=== PATIENT | male | born 1955 | race African-American/Black ===

== ENCOUNTER 2020-09-13 02:52 | Inpatient (IN) | payer MEDICARE, OTHER ==
[~2020-09-13] VITALS: Ht 182.9 cm; Wt 65.8 kg
--- NOTE | 2020-09-13 02:56 | NUR ---
pt bibpa c/o gravely disabled and DTO being aggressive to staff at facility. Pt aaox2 breathing evenly and unlabored. pt attached to monitor and pox. Pt here for med clearance for GPS. SKin is warm and dry. Pt given blanket and call light within reach
--- NOTE | 2020-09-13 03:12 | NUR ---
lab at bedside
--- NOTE | 2020-09-13 03:19 | NUR ---
urine sent to lab
[2020-09-13 03:40] LABS: BILIRUBIN,URINE Negative (NEGATIVE); COLOR,URINE YELLOW (YELLOW); LEUKOCYTE ESTERASE ,URINE Small (NEGATIVE); NITRITE, URINE Negative (NEGATIVE); PROTEIN,URINE 30 mg/dl (NEGATIVE); UGLUCOSE Negative (NEGATIVE); UROBILINOGEN,URINE 0.2 EU/dL (0.2)
[2020-09-13 04:01] LABS: WBC,URINE 81-100 /HPF (0-3)
[2020-09-13 04:02] LABS: BACTERIA,URINE None seen /HPF (None Seen); SQUAMOUS EPITHELIAL CELL,UR Rare /HPF (None Seen)
[2020-09-13 04:10] LABS: BASOPHILS # (AUTO) 0.1 K/uL (0.0-0.2); BASOPHILS % (AUTO) 1.3 % (0.0-2.0); EOSINOPHILS % (AUTO) 5.8 % (0.0-6.0); HEMATOCRIT 29 % (39-51); HEMOGLOBIN 9.7 g/dL (13.5-17.5); LYMPHOCYTES # (AUTO) 1.8 K/uL (0.8-4.8); LYMPHOCYTES % (AUTO) 42.4 % (20.0-44.0); MEAN CORPUSCULAR HGB CONC 33 g/dl (31.0-36.0); MEAN CORPUSCULAR VOLUME 102 fL (80-96); MONOCYTES # (AUTO) 0.5 K/uL (0.1-1.30); MONOCYTES % (AUTO) 12.2 % (2.0-12.0); NEUTROPHILS # (AUTO) 1.6 K/uL (1.8-8.9); NEUTROPHILS % (AUTO) 38.3 % (43.0-81.0); PLATELET COUNT (AUTO) 418 K/uL (150-450); RED BLOOD CELL COUNT(AUTO) 2.89 MIL/uL (4.5-6.0); WHITE BLOOD COUNT (AUTO) 4.2 K/uL (4.3-11.0)
[2020-09-13 04:27] LABS: ALANINE AMINOTRANSFERASE 15 U/L (12-78); ALCOHOL, BLOOD < 3 mg/dL (0-0); ALKALINE PHOSPHATASE 157 U/L (46-116); ASPARTATE AMINOTRANSFERASE 19 U/L (15-37); BILIRUBIN,DIRECT 0.1 mg/dL (0.0-0.2); BILIRUBIN,TOTAL 0.1 mg/dL (0.2-1.0); CARBON DIOXIDE 18 mmol/L (21-32); CHLORIDE 110 mmol/L (98-107); CREATININE 1.6 mg/dL (0.6-1.3); GLUCOSE 108 mg/dL (74-106); POTASSIUM 4.5 mmol/L (3.5-5.1); SODIUM SERUM 138 mmol/L (136-145); TOTAL PROTEIN, SERUM 6.9 g/dL (6.4-8.2); UREA NITROGEN, BLOOD 20 mg/dL (7-18)
[2020-09-13 04:30] LABS: ACETAMINOPHEN 0 ug/ml (10-30)
[2020-09-13] MEDS: CEPHALEXIN MONOHYDRATE 500 MG CAPSULE PO SCH ×2 (05:00→16:36)
[2020-09-13] MEDS ORDERED: CEPHALEXIN MONOHYDRATE 500 MG CAPSULE PO ONE (05:03)
--- NOTE | 2020-09-13 05:11 | NUR ---
gave report to MENDY Maguire for kenia
[2020-09-13] MEDS ORDERED: ZOLPIDEM TARTRATE 5 MG TABLET PO PRN (06:00)
[2020-09-13] MEDS ORDERED: ACETAMINOPHEN 325 MG TABLET PO PRN (06:00)
[2020-09-13] MEDS ORDERED: LORAZEPAM 0.5 MG TABLET PO PRN (06:00)
[2020-09-13] MEDS ORDERED: MAGNESIUM HYDROXIDE 30 ML UDC PO PRN (06:00)
[2020-09-13] MEDS ORDERED: MAG HYDROX/AL HYDROX/SIMETH 30 ML UDC PO PRN (06:00)
[2020-09-13] MEDS ORDERED: BLOOD SUGAR DIAGNOSTIC 1 EACH STRIP IN ONE (06:00)
--- NOTE | 2020-09-13 06:17 | NUR ---
ADMISSION NOTES: ADMITTED THIS 64Y/O MALE PATIENT ADMIT FROM [facility] ER/ INTIALLY FROM [facility] , ADMITTED TO GPS ON 5150 HOLD, PER HOLD DTO GRAVELY DISABLE,PER HOLD PT. VERBALLY AGGRESSIVE, COMBATIVE BEHAVIOR , TRYING TO HIT STAFF ,UPON FACE TO FACE ASSESSMENT PATIENT IS A&O X , 2,3 ANXIOUS ,DISHELVED ,EASILY GETS AGITATED, DISORGNIZED, UNCOOPERTIVE, NON REDIRDTABLE ,NONCOMPLIANT WITH CARE ,POOR HYGINE REFUSED TO TAKE SHOWER DENIES SI /HI AT THIS TIME, PT. IS POOR HISTORIAN, POOR INSIGHT ,POOR JUDGEMENT , PT. REFUSED TO SIGNS ADMISSION CONSENT PAPERS , DUE TO MENTAL STATUS/ ANXIOUS , PT. REFUSED INTIALLY BLOOD SUGAR CHECK, ENCOURAGED , PT. STRONGLY REFUSED , BOTH MD AWARE AND NOTIFIED OF THE ADMISSION, BELONGINGS CONTRABAND WERE DONE , NURSING ASSESSMENT DONE ,PT. RIGHTS DISCUSS BY BROADCAST ENGINEER , PROVIDE THE PT. WITH HANDBOOK, AND MEDICATIONS GUIDE, ENVIRONMENTAL SAFETY CHECK DONE, ENCOURAGED PT. VERBALIZED ANY FEELING CONCERN TO STAFF, ORIENT TO UNIT POLICY, NO ACUTE DISTRESS NOTED,VITAL SIGNS WNL ,DENIES ANY PAIN AT THIS TIME,WILL CONTINUE TO MONITOR FOR Q15 SAFETY AND BEHAVIOR.
[2020-09-13] MEDS ORDERED: AMLO-213 PO (06:56)
[2020-09-13] MEDS ORDERED: QUET300T2 PO (06:56)
[2020-09-13] MEDS ORDERED: METO25TA20 PO (06:56)
[2020-09-13] MEDS ORDERED: APIX5TAB PO (06:56)
[2020-09-13] MEDS ORDERED: LATA2.5D15 EACHEYE (06:56)
[2020-09-13] MEDS ORDERED: INSU100I26 SQ (06:56)
[2020-09-13] MEDS ORDERED: GABA300C PO (06:56)
[2020-09-13] MEDS ORDERED: [UNRECOGNIZED DRUG - CODE] (06:56)
[2020-09-13] MEDS ORDERED: FAMO20TA8 PO (06:56)
[2020-09-13] MEDS ORDERED: AMYL1CAP58 PO (06:56)
[2020-09-13] MEDS ORDERED: MULT-754 PO (07:01)
[2020-09-13 07:03] VITALS: BP 115/68
[2020-09-13 08:00] VITALS: BP 123/71
[2020-09-13] MEDS ORDERED: DEXTROSE 50%-WATER 50 ML DISP.SYRIN IV PRN (08:30)
--- NOTE | 2020-09-13 09:03 | NUR ---
Received call from Dr. Marino and said he is his pt. and he will call Ezekiel Shields. Dr. Cole gave an orders and reconciled the meds.
[2020-09-13] MEDS: BLOOD SUGAR DIAGNOSTIC 1 EACH STRIP IN SCH ×3 (11:22→21:21)
[2020-09-13] MEDS: APIXABAN 5 MG TABLET PO SCH ×2 (11:23→21:14)
[2020-09-13] MEDS: LIPASE/PROTEASE/AMYLASE 1 EACH CAPSULE.DR PO SCH ×2 (12:06→17:38)
[2020-09-13] MEDS: GABAPENTIN 300 MG CAPSULE PO SCH ×2 (12:07→16:37)
--- NOTE | 2020-09-13 13:51 | NUR ---
Admitting Notes: Admitted a 64 years old of 5150 for DTO and GD. Pt. was aggressive, not being able to be directed and increasing bizarre behavior and aggressive towards others. Upon face to face assessment pt. is alert/oriented x3, cooperative on the admission process. Pt. denies beling suicidal and homicidal. Pt. doesn't want to notify the immediate social contact worker. Dr. Marino called reconciled meds and gave orders. Dr. Ch came and see pt. Will continue to monitor for safety.
[2020-09-13 16:00] VITALS: BP 111/71
[2020-09-13] MEDS: QUETIAPINE FUMARATE 100 MG TABLET PO SCH ×2 (16:39→21:13)
[2020-09-13] MEDS: METOPROLOL TARTRATE 25 MG TABLET PO SCH (16:40)
[2020-09-13] MEDS: HYDROCODONE/APAP 5/325MG TABLET PO PRN (16:41)
[2020-09-13] MEDS ORDERED: Medication Not On Formulary EA (Quetiapine Fumarate (Seroquel) 300 MG) PO SCH (17:00)
[2020-09-13] MEDS: INSULIN REGULAR, HUMAN 100 UNIT/ML 3 ML VIAL SQ PRN (17:30)
[2020-09-13 20:59] VITALS: BP 102/62
[2020-09-13] MEDS: LATANOPROST EYE DROP 0.005% 2.5 ML BOTTLE EACHEYE SCH (21:16)
[2020-09-13] MEDS: INSULIN GLARGINE, 100 UNIT/ML CARTRIDGE SQ SCH (21:21)
--- NOTE | 2020-09-13 21:26 | NUR ---
PATIENT REFUSED THE LANTUS, ADVISED THE PATIENT THE BENEFITS AND IMPORTANCE OF THE MED.
[2020-09-14 08:00] VITALS: BP 115/69
--- NOTE | 2020-09-14 08:03 | NUR ---
GPS/RN PT REFUSED INSULIN COVERAGE AND REFUSED LABS DRAWN PER ADMINISTRATIVE SUPPORT ASSOCIATE.
[2020-09-14] MEDS: BLOOD SUGAR DIAGNOSTIC 1 EACH STRIP IN SCH ×4 (08:54→22:42)
[2020-09-14] MEDS: HYDROCODONE/APAP 5/325MG TABLET PO PRN ×2 (09:25→23:03)
[2020-09-14] MEDS: AMLODIPINE BESYLATE 10 MG TABLET PO SCH (09:25)
[2020-09-14] MEDS: FAMOTIDINE (20 MG) 20 MG TABLET PO SCH (09:26)
[2020-09-14] MEDS: CEPHALEXIN MONOHYDRATE 500 MG CAPSULE PO SCH ×2 (09:26→17:22)
[2020-09-14] MEDS: LIPASE/PROTEASE/AMYLASE 1 EACH CAPSULE.DR PO SCH ×3 (09:26→17:22)
[2020-09-14] MEDS: MULTIVITAMINS,THERAGRAN 1 UDTAB TABLET PO SCH (09:26)
[2020-09-14] MEDS: GABAPENTIN 300 MG CAPSULE PO SCH ×3 (09:26→17:22)
[2020-09-14] MEDS: SERTRALINE HCL 25 MG TABLET PO SCH (09:26)
[2020-09-14] MEDS: QUETIAPINE FUMARATE 100 MG TABLET PO SCH ×3 (09:28→22:24)
[2020-09-14] MEDS: METOPROLOL TARTRATE 25 MG TABLET PO SCH ×2 (09:28→17:22)
[2020-09-14] MEDS: APIXABAN 5 MG TABLET PO SCH ×2 (09:33→17:25)
--- NOTE | 2020-09-14 12:00 | NUR ---
GPS/RN PT REFUSED ACCUCHECK OFFERED X3
[2020-09-14 16:00] VITALS: BP 150/70
--- NOTE | 2020-09-14 17:12 | NUR ---
GPS/RN ACCUCHECK 271. PT REFUSED INSULIN COVERAGE OFFERED X3
[2020-09-14 20:19] VITALS: BP 116/66
[2020-09-14] MEDS: INSULIN GLARGINE, 100 UNIT/ML CARTRIDGE SQ SCH (22:00)
[2020-09-14] MEDS: LATANOPROST EYE DROP 0.005% 2.5 ML BOTTLE EACHEYE SCH (22:23)
[2020-09-14] MEDS: INSULIN REGULAR, HUMAN 100 UNIT/ML 3 ML VIAL SQ PRN (22:41)
--- NOTE | 2020-09-14 22:44 | NUR ---
GPS RN NOTES: BS 267. 6U REGULAR INSULIN ADMINISTERED PER SLIDING SCALE. PATIENT REFUSED LANTUS 8U ORDERED.
--- NOTE | 2020-09-14 23:05 | NUR ---
GPS RN NOTES: NORCO 5/325MG/1TAB GIVEN PO AT 2303 FOR GENERALIZED BODY PAIN. WILL CONTINUE TO MONITOR.
--- NOTE | 2020-09-14 23:05 | NUR ---
GPS RN NOTES: WEEKLY SKIN ASSESSMENT DONE, PICTURES TAKEN OF FOOT ULCERS AND PLACED IN PATIENT CHART. WOUND DRESSING DONE.
--- NOTE | 2020-09-15 01:13 | NUR ---
GPS RN NOTES: PATIENT REFUSED LABS
--- NOTE | 2020-09-15 06:32 | NUR ---
GPS RN NOTES: PATIENT IS CURRENTLY SLEEPING COMFORTABLY IN BED. PATIENT SLEPT 5HR THIS SHIFT. NO S/S OF DISTRESS. RESPIRATION EVEN AND UNLABORED WITH EQUAL RISE AND FALL OF THE CHEST, ON ROOM AIR. BED IN LOWEST POSITION AND LOCKED, SIDE RAILS UP X2. CALL TAVAREZ WITHIN REACH. ALL PATIENT CARE NEEDS HAVE BEEN MET ANTICIPATED. WILL CONTINUE TO MONITOR AND ENDORSE TO AM SHIFT.
[2020-09-15 07:05] LABS: BASOPHILS # (AUTO) 0.1 K/uL (0.0-0.2); BASOPHILS % (AUTO) 1.1 % (0.0-2.0); EOSINOPHILS % (AUTO) 4.2 % (0.0-6.0); HEMATOCRIT 28 % (39-51); LYMPHOCYTES # (AUTO) 1.3 K/uL (0.8-4.8); LYMPHOCYTES % (AUTO) 27.2 % (20.0-44.0); MEAN CORPUSCULAR HGB CONC 33 g/dl (31.0-36.0); MEAN CORPUSCULAR VOLUME 103 fL (80-96); MONOCYTES # (AUTO) 0.6 K/uL (0.1-1.30); MONOCYTES % (AUTO) 13.3 % (2.0-12.0); NEUTROPHILS # (AUTO) 2.5 K/uL (1.8-8.9); NEUTROPHILS % (AUTO) 54.2 % (43.0-81.0); PLATELET COUNT (AUTO) 359 K/uL (150-450); RED BLOOD CELL COUNT(AUTO) 2.68 MIL/uL (4.5-6.0); WHITE BLOOD COUNT (AUTO) 4.6 K/uL (4.3-11.0)
--- NOTE | 2020-09-15 07:45 | NUR ---
WOUND CARE CONSULT: PT PRESENTS WITH CHRONIC WOUND TO LEFT FOOT AND SACRAL SCARRING, PRESENT ON ADMISSION. RECOMMEND DPM CONSULT. DR JOSEPH NOTIFIED OF CONSULT REQUEST. RECOMMENDATIONS MADE FOR SKIN PROTECTION. DISCUSSED WITH NURSING STAFF. DRESSING TO LEFT FOOT IS DRY AND INTACT. MD IN AGREEMENT WITH PLAN OF CARE.
[2020-09-15] MEDS: BLOOD SUGAR DIAGNOSTIC 1 EACH STRIP IN SCH ×4 (07:48→21:38)
[2020-09-15 07:51] LABS: CALCIUM, SERUM 8.2 mg/dL (8.5-10.1); CREATININE 1.6 mg/dL (0.6-1.3); PHOSPHORUS 4.4 mg/dL (2.5-4.9); POTASSIUM 4.7 mmol/L (3.5-5.1)
[2020-09-15 08:14] LABS: CHOLESTEROL 119 mg/dL (<200); HDL CHOLESTEROL 50 mg/dL (40-60); LDL 53 mg/dL (0-99); TRIGLYCERIDES 69 mg/dL (30-150)
[2020-09-15 08:25] VITALS: BP 99/60
[2020-09-15] MEDS: FAMOTIDINE (20 MG) 20 MG TABLET PO SCH (08:31)
[2020-09-15] MEDS: GABAPENTIN 300 MG CAPSULE PO SCH ×3 (08:31→17:16)
[2020-09-15] MEDS: MULTIVITAMINS,THERAGRAN 1 UDTAB TABLET PO SCH (08:31)
[2020-09-15] MEDS: LIPASE/PROTEASE/AMYLASE 1 EACH CAPSULE.DR PO SCH ×3 (08:31→17:21)
[2020-09-15] MEDS: SERTRALINE HCL 25 MG TABLET PO SCH (08:31)
[2020-09-15] MEDS: QUETIAPINE FUMARATE 100 MG TABLET PO SCH ×3 (08:32→21:31)
[2020-09-15] MEDS: METOPROLOL TARTRATE 25 MG TABLET PO SCH ×2 (08:33→17:00)
[2020-09-15] MEDS: CEPHALEXIN MONOHYDRATE 500 MG CAPSULE PO SCH (08:33)
[2020-09-15] MEDS: AMLODIPINE BESYLATE 10 MG TABLET PO SCH (08:33)
[2020-09-15] MEDS: APIXABAN 5 MG TABLET PO SCH ×2 (08:34→17:18)
[2020-09-15 08:39] LABS: ALBUMIN 1.9 g/dL (3.4-5.0); BILIRUBIN,DIRECT 0.1 mg/dL (0.0-0.2); BILIRUBIN,TOTAL 0.2 mg/dL (0.2-1.0); TOTAL PROTEIN, SERUM 6.5 g/dL (6.4-8.2)
[2020-09-15] MEDS: Z GUARD REMEDY 2 OZ OINT TP SCH (09:13)
[2020-09-15] MEDS: FERROUS SULFATE (325 MG) 325 MG/TAB TABLET PO SCH ×3 (10:17→17:17)
[2020-09-15] MEDS: INSULIN REGULAR, HUMAN 100 UNIT/ML 3 ML VIAL SQ PRN ×3 (11:49→21:44)
[2020-09-15] MEDS: GLUCERNA SHAKE 237 ML CAN PO SCH (12:30)
[2020-09-15] MEDS: HYDROCODONE/APAP 5/325MG TABLET PO PRN ×2 (14:01→21:40)
--- NOTE | 2020-09-15 14:01 | NUR ---
RN NOTE: PAIN PT C/O 09/16 GENERALIZED PAIN. MEDICATED WITH NORCO PO PRN.
[2020-09-15 16:00] VITALS: BP 107/70
[2020-09-15] MEDS ORDERED: EPOETIN ALFA-EPBX 10,000 UNIT/ML VIAL SQ ONE (19:30)
[2020-09-15 20:00] VITALS: BP 120/65
[2020-09-15] MEDS: CITRIC ACID/SODIUM CITRATE (BICITRA)15 ML UDC PO SCH (20:00)
[2020-09-15] MEDS: LATANOPROST EYE DROP 0.005% 2.5 ML BOTTLE EACHEYE SCH (21:25)
--- NOTE | 2020-09-15 21:40 | NUR ---
GPS RN NOTES: PATIENT C/O GENERALIZED BODY PAIN ON A PAIN SCALE OF 7/10. NORCO 5/325MG 1TAB PO GIVEN. WILL CONTINUE TO REASSESS.
[2020-09-15] MEDS: INSULIN GLARGINE, 100 UNIT/ML CARTRIDGE SQ SCH (22:00)
--- NOTE | 2020-09-15 22:38 | NUR ---
GPS RN NOTES: PATIENT BS 214MG/DL. 4U REGULAR INSULIN ADMINISTERED PER SLIDING SCALE. PATIENT REFUSED SCHEDULED LANTUS 8U DESPITE OF EDUCATION REGARDING MEDICATION COMPLIANCE BUT PATIENT CONTINUED TO REFUSE. WILL CONTINUE TO MONITOR.
[2020-09-16] MEDS: BLOOD SUGAR DIAGNOSTIC 1 EACH STRIP IN SCH ×4 (07:30→21:39)
[2020-09-16 08:00] VITALS: BP 117/57
[2020-09-16] MEDS: LIPASE/PROTEASE/AMYLASE 1 EACH CAPSULE.DR PO SCH ×3 (08:36→18:28)
[2020-09-16] MEDS: QUETIAPINE FUMARATE 100 MG TABLET PO SCH ×3 (08:37→21:40)
[2020-09-16] MEDS: MULTIVITAMINS,THERAGRAN 1 UDTAB TABLET PO SCH (08:37)
[2020-09-16] MEDS: METOPROLOL TARTRATE 25 MG TABLET PO SCH ×2 (08:37→17:00)
[2020-09-16] MEDS: FERROUS SULFATE (325 MG) 325 MG/TAB TABLET PO SCH ×3 (08:37→17:00)
[2020-09-16] MEDS: GABAPENTIN 300 MG CAPSULE PO SCH ×3 (08:37→17:00)
[2020-09-16] MEDS: APIXABAN 5 MG TABLET PO SCH ×2 (08:38→17:00)
[2020-09-16] MEDS: SERTRALINE HCL 25 MG TABLET PO SCH (08:40)
[2020-09-16] MEDS: AMLODIPINE BESYLATE 10 MG TABLET PO SCH (08:40)
[2020-09-16] MEDS: GLUCERNA SHAKE 237 ML CAN PO SCH (08:41)
[2020-09-16] MEDS: CITRIC ACID/SODIUM CITRATE (BICITRA)15 ML UDC PO SCH ×5 (09:00→21:02)
[2020-09-16] MEDS: Z GUARD REMEDY 2 OZ OINT TP SCH (09:28)
[2020-09-16] MEDS: FAMOTIDINE (20 MG) 20 MG TABLET PO SCH (09:31)
[2020-09-16] MEDS: INSULIN REGULAR, HUMAN 100 UNIT/ML 3 ML VIAL SQ PRN ×3 (13:08→21:42)
--- NOTE | 2020-09-16 14:50 | NUR ---
Initial Discharge Plan: Pt plans to discharge back to his prior living arrangement at [facility] (Assisted Living) [[address] [place] [address]; [phone]]. Pt is able to return to the facility at the time of D/C. SW will work with the pt and the MD regarding appropriate discharge planning. SW will form a safe and proper discharge plan.
[2020-09-16 16:36] VITALS: BP 118/65
[2020-09-16] MEDS: HYDROCODONE/APAP 5/325MG TABLET PO PRN (19:26)
--- NOTE | 2020-09-16 19:26 | NUR ---
GPS RN NOTES: PAIN PT. C/O GENERALIZED BODY PAIN 09/16 , NORCO 5/325MG/1TAB GIVEN PER PT. REQUEST . WILL CONTINUE TO MONITOR.
[2020-09-16 20:00] VITALS: BP 123/82
[2020-09-16] MEDS: LATANOPROST EYE DROP 0.005% 2.5 ML BOTTLE EACHEYE SCH (21:43)
[2020-09-16] MEDS: INSULIN GLARGINE, 100 UNIT/ML CARTRIDGE SQ SCH (22:00)
--- NOTE | 2020-09-16 22:01 | NUR ---
GPS RN NOTES: PATIENT BS 174MG/DL. 3U REGULAR INSULIN ADMINISTERED PER SLIDING SCALE. PATIENT REFUSED SCHEDULED LANTUS 8U DESPITE OF EDUCATION REGARDING MEDICATION COMPLIANCE BUT PT. STILL REFUSE. WILL CONTINUE TO MONITOR.
[2020-09-17] MEDS: BLOOD SUGAR DIAGNOSTIC 1 EACH STRIP IN SCH ×4 (07:33→22:54)
[2020-09-17 08:00] VITALS: BP 126/76
[2020-09-17] MEDS: FERROUS SULFATE (325 MG) 325 MG/TAB TABLET PO SCH ×3 (08:05→16:10)
[2020-09-17] MEDS: CITRIC ACID/SODIUM CITRATE (BICITRA)15 ML UDC PO SCH ×4 (08:05→20:37)
[2020-09-17] MEDS: FAMOTIDINE (20 MG) 20 MG TABLET PO SCH (08:05)
[2020-09-17] MEDS: AMLODIPINE BESYLATE 10 MG TABLET PO SCH (08:06)
[2020-09-17] MEDS: MULTIVITAMINS,THERAGRAN 1 UDTAB TABLET PO SCH (08:06)
[2020-09-17] MEDS: GABAPENTIN 300 MG CAPSULE PO SCH ×3 (08:06→16:10)
[2020-09-17] MEDS: QUETIAPINE FUMARATE 100 MG TABLET PO SCH ×3 (08:06→22:02)
[2020-09-17] MEDS: LIPASE/PROTEASE/AMYLASE 1 EACH CAPSULE.DR PO SCH ×3 (08:06→17:13)
[2020-09-17] MEDS: METOPROLOL TARTRATE 25 MG TABLET PO SCH ×2 (08:07→16:10)
[2020-09-17] MEDS: APIXABAN 5 MG TABLET PO SCH ×2 (08:09→16:11)
[2020-09-17] MEDS: Z GUARD REMEDY 2 OZ OINT TP PRN ×2 (08:11→08:41)
[2020-09-17] MEDS: GLUCERNA SHAKE 237 ML CAN PO SCH (08:15)
[2020-09-17] MEDS: SERTRALINE HCL 25 MG TABLET PO SCH (08:18)
[2020-09-17] MEDS: Z GUARD REMEDY 2 OZ OINT TP SCH (08:41)
[2020-09-17] MEDS: INSULIN REGULAR, HUMAN 100 UNIT/ML 3 ML VIAL SQ PRN ×3 (11:21→22:57)
[2020-09-17] MEDS: HYDROCODONE/APAP 5/325MG TABLET PO PRN (17:30)
[2020-09-17 20:00] VITALS: BP 98/64
[2020-09-17] MEDS: INSULIN GLARGINE, 100 UNIT/ML CARTRIDGE SQ SCH (22:00)
[2020-09-17] MEDS: LATANOPROST EYE DROP 0.005% 2.5 ML BOTTLE EACHEYE SCH (22:09)
--- NOTE | 2020-09-17 22:55 | NUR ---
GPS RN NOTES: IN072GY/DL. 3UNITS REGULAR INSULIN ADMINISTERED PER SLIDING SCALE ORDER. PATIENT REFUSED 2200 LANTUS 8UNITS, ORDERED. WILL CONTINUE TO MONITOR.
[2020-09-18] MEDS: BLOOD SUGAR DIAGNOSTIC 1 EACH STRIP IN SCH ×4 (07:38→21:53)
[2020-09-18 08:00] VITALS: BP 102/65
[2020-09-18] MEDS: CITRIC ACID/SODIUM CITRATE (BICITRA)15 ML UDC PO SCH ×4 (08:06→21:02)
[2020-09-18] MEDS: AMLODIPINE BESYLATE 10 MG TABLET PO SCH (08:07)
[2020-09-18] MEDS: QUETIAPINE FUMARATE 100 MG TABLET PO SCH ×3 (08:07→21:32)
[2020-09-18] MEDS: SERTRALINE HCL 25 MG TABLET PO SCH (08:08)
[2020-09-18] MEDS: GABAPENTIN 300 MG CAPSULE PO SCH ×3 (08:08→16:17)
[2020-09-18] MEDS: METOPROLOL TARTRATE 25 MG TABLET PO SCH ×2 (08:08→16:22)
[2020-09-18] MEDS: FAMOTIDINE (20 MG) 20 MG TABLET PO SCH (08:08)
[2020-09-18] MEDS: FERROUS SULFATE (325 MG) 325 MG/TAB TABLET PO SCH ×3 (08:08→16:18)
[2020-09-18] MEDS: MULTIVITAMINS,THERAGRAN 1 UDTAB TABLET PO SCH (08:08)
[2020-09-18] MEDS: APIXABAN 5 MG TABLET PO SCH ×2 (08:09→16:21)
[2020-09-18] MEDS: LIPASE/PROTEASE/AMYLASE 1 EACH CAPSULE.DR PO SCH ×3 (08:11→17:04)
[2020-09-18] MEDS: GLUCERNA SHAKE 237 ML CAN PO SCH (08:12)
[2020-09-18] MEDS: Z GUARD REMEDY 2 OZ OINT TP SCH (09:00)
[2020-09-18] MEDS: Z GUARD REMEDY 2 OZ OINT TP PRN ×2 (10:08→10:09)
[2020-09-18] MEDS: INSULIN REGULAR, HUMAN 100 UNIT/ML 3 ML VIAL SQ PRN ×3 (11:28→21:57)
[2020-09-18 16:00] VITALS: BP 103/58
[2020-09-18] MEDS: HYDROCODONE/APAP 5/325MG TABLET PO PRN (18:52)
--- NOTE | 2020-09-18 18:53 | NUR ---
RN-CO: NORCO GIVEN FOR BACK PAIN 08/16.
[2020-09-18 19:44] VITALS: BP 130/68
[2020-09-18] MEDS: INSULIN GLARGINE, 100 UNIT/ML CARTRIDGE SQ SCH (22:00)
[2020-09-18] MEDS: LATANOPROST EYE DROP 0.005% 2.5 ML BOTTLE EACHEYE SCH (22:05)
--- NOTE | 2020-09-18 22:21 | NUR ---
GPS RN NOTES: [id number]/DL. 3UNITS REGULAR INSULIN ADMINISTERED PER SLIDING SCALE ORDER. PATIENT REFUSED 2200 LANTUS 8UNITS ORDERED. WILL CONTINUE TO MONITOR.
[2020-09-19 08:00] VITALS: BP 121/60
[2020-09-19] MEDS: BLOOD SUGAR DIAGNOSTIC 1 EACH STRIP IN SCH ×2 (08:01→11:54)
[2020-09-19] MEDS: LIPASE/PROTEASE/AMYLASE 1 EACH CAPSULE.DR PO SCH ×2 (08:03→12:06)
[2020-09-19] MEDS: GABAPENTIN 300 MG CAPSULE PO SCH ×2 (08:03→12:06)
[2020-09-19] MEDS: FERROUS SULFATE (325 MG) 325 MG/TAB TABLET PO SCH ×2 (08:03→12:06)
[2020-09-19] MEDS: CITRIC ACID/SODIUM CITRATE (BICITRA)15 ML UDC PO SCH ×2 (08:03→12:06)
[2020-09-19] MEDS: QUETIAPINE FUMARATE 100 MG TABLET PO SCH (08:03)
[2020-09-19] MEDS: FAMOTIDINE (20 MG) 20 MG TABLET PO SCH (08:03)
[2020-09-19 08:04] VITALS: BP 121/60
[2020-09-19] MEDS: AMLODIPINE BESYLATE 10 MG TABLET PO SCH (08:04)
[2020-09-19] MEDS: METOPROLOL TARTRATE 25 MG TABLET PO SCH (08:04)
[2020-09-19] MEDS: APIXABAN 5 MG TABLET PO SCH (08:05)
[2020-09-19] MEDS: SERTRALINE HCL 25 MG TABLET PO SCH (08:07)
[2020-09-19] MEDS: MULTIVITAMINS,THERAGRAN 1 UDTAB TABLET PO SCH (08:07)
[2020-09-19] MEDS: GLUCERNA SHAKE 237 ML CAN PO SCH (08:11)
--- NOTE | 2020-09-19 09:20 | NUR ---
Dr. Ch gave an order to D/C hold and D/C to [facility] and to follow up with psych and medical doctors. Pt. denies suicidal and homicidal. Belongings ready, discharge papers ready and pictures taken for the skin issues.
[2020-09-19] MEDS: Z GUARD REMEDY 2 OZ OINT TP SCH (09:42)
[2020-09-19] MEDS: INSULIN REGULAR, HUMAN 100 UNIT/ML 3 ML VIAL SQ PRN (11:56)
--- NOTE | 2020-09-19 12:16 | NUR ---
Dr. Hooper Made aware of the discharge, reconciled he meds and provided prescriptions.
--- NOTE | 2020-09-19 14:15 | NUR ---
Discharge Planning: SW called [facility] [[address] [place] [address]; ] and spoke to Bo from intake updating them that this pt. will be discharged from [facility] AT 3 pm to be taken back to [facility]. Bo expressed understanding and was agreeable.
--- NOTE | 2020-09-19 15:18 | NUR ---
Discharge Plan: Pt. will be discharged to prior living arrangement at [facility] (Assisted Living) [[address] , [place] [address]; [phone]] today at 3 pm. Pt. will be transported via [facility]. Pt.s daughter, Leticia [phone], was notified. Currently, pt. appears to be in a euthymic mood with an anxious affect. Pt. remains calm and cooperative. Pt. denies SI/HI and denies hallucinations. Pt. will be under the care of a psychiatrist and research statistician at [facility] (Assisted Living). Pt was also provided with the address and phone number of [facility] located at [address] [place] [phone]; .
--- NOTE | 2020-09-19 15:30 | NUR ---
Pt. left the unit with belongings via ambulance and transported with a gurney. Pt. was instructed on meds to continue at home and verbalizes understanding and advised to make follow up with psych and medical doctors and agreed. Left without distress, v/s taken: BP 128/76, UT 78, RR 18, temp 98.8 and oxygen sat 98%
== END 2020-09-19 15:30 | DRG 876 ==
LOC: ER 02:56 → GPS 04:46
PROVIDERS: ADMIT Psychiatry & Neurology Psychiatry; ATTEND Internal Medicine
PROC: 0JBR0ZZ Excision of Left Foot Subcutaneous Tissue and Fascia, Open Approach (ICD-10-PCS; principal; 2020-09-16)
DX: F33.3 Major depressive disorder, recurrent, severe with psychotic symptoms (principal); N18.9 Chronic kidney disease, unspecified; N17.9 Acute kidney failure, unspecified; E11.65 Type 2 diabetes mellitus with hyperglycemia; G92 Toxic encephalopathy; Z68.1 Body mass index [BMI] 19.9 or less, adult; L97.528 Non-pressure chronic ulcer of other part of left foot with other specified severity; E44.0 Moderate protein-calorie malnutrition; E11.22 Type 2 diabetes mellitus with diabetic chronic kidney disease; I12.9 Hypertensive chronic kidney disease with stage 1 through stage 4 chronic kidney disease, or unspecified chronic kidney disease; R62.7 Adult failure to thrive; D64.9 Anemia, unspecified; E11.40 Type 2 diabetes mellitus with diabetic neuropathy, unspecified; I48.91 Unspecified atrial fibrillation; M21.172 Varus deformity, not elsewhere classified, left ankle; E11.621 Type 2 diabetes mellitus with foot ulcer; Z79.4 Long term (current) use of insulin; F29 Unspecified psychosis not due to a substance or known physiological condition; Z20.822 Contact with and (suspected) exposure to COVID-19
CPT/HCPCS: 36415; 80048-TC; 80061-TC; 80076-TC; 81001; 82728-TC; 82962-TC; 83540-TC; 83735-TC; 84100-TC; 85025-TC; 87081-TC; 87086-TC; 97110-TC; 97112-TC; 97116-TC; C9803; G0480; J0885; J1815